=== PATIENT | male | born 1970 | race Native Hawaiian/Other Pacific Islander ===

== ENCOUNTER 2021-06-20 13:44 | Inpatient (IN) | payer OTHER ==
[~2021-06-20] VITALS: Ht 172.7 cm; Wt 109.5 kg
[2021-06-20 10:50] VITALS: BP 116/61; TEMP 97.3
[2021-06-20 15:35] LABS: PLATELET COUNT 249 K/uL (142-355)
[2021-06-20 16:06] LABS: POTASSIUM 4.3 mmol/L (3.6-5.2)
[2021-06-20 18:42] VITALS: BP 134/78; TEMP 98.7; Ht 172.7 cm; Wt 109.5 kg
[2021-06-20 20:00] VITALS: BP 133/85; TEMP 98.4
[2021-06-20 23:10] VITALS: BP 124/74; TEMP 97.4
[2021-06-21] VITALS (7 sets, daily range): BP systolic 122–147; BP diastolic 63–80; TEMP 97–99.9
[2021-06-21 04:41] LABS: PLATELET COUNT 215 K/uL (142-355)
[2021-06-21 05:09] LABS: POTASSIUM 4.2 mmol/L (3.6-5.2)
[2021-06-22] VITALS: BP 141/85; TEMP 98.4
[2021-06-22 04:00] VITALS: BP 148/87; TEMP 97.5
[2021-06-22 08:00] VITALS: BP 130/76; TEMP 98.3
[2021-06-22 08:58] LABS: PLATELET COUNT 309 K/uL (142-355)
[2021-06-22 12:00] VITALS: BP 139/73; TEMP 98.1
[2021-06-22 16:00] VITALS: BP 151/81; TEMP 98.8
[2021-06-22 20:00] VITALS: BP 151/77; TEMP 98.5
[2021-06-23] VITALS: BP 137/76; TEMP 98.3
[2021-06-23 04:00] VITALS: BP 147/88; TEMP 98.3
[2021-06-23 08:00] VITALS: BP 135/82; TEMP 97.9
[2021-06-23 12:00] VITALS: BP 130/77; TEMP 98.1
[2021-06-23 15:32] LABS: PLATELET COUNT 387 K/uL (142-355)
[2021-06-23 15:55] LABS: POTASSIUM 3.9 mmol/L (3.6-5.2)
[2021-06-23 16:00] VITALS: BP 137/72; TEMP 98.2
[2021-06-23 20:00] VITALS: BP 151/89; TEMP 98.5
[2021-06-24 00:26] VITALS: BP 143/86; TEMP 98.4
[2021-06-24 04:00] VITALS: BP 135/78; TEMP 98.7
[2021-06-24 06:15] LABS: POTASSIUM 4.9 mmol/L (3.6-5.2)
[2021-06-24 06:21] LABS: PLATELET COUNT 371 K/uL (142-355)
[2021-06-24 08:00] VITALS: BP 145/91; TEMP 97.9
[2021-06-24 12:00] VITALS: BP 129/79; TEMP 97.9
[2021-06-24 16:00] VITALS: BP 125/75; TEMP 97.8
[2021-06-24 20:00] VITALS: BP 146/81; TEMP 97.8
[2021-06-25 00:21] VITALS: BP 145/81; TEMP 97.7
[2021-06-25 04:00] VITALS: BP 140/84; TEMP 97.8
[2021-06-25 06:11] LABS: PLATELET COUNT 542 K/uL (142-355)
[2021-06-25 06:38] LABS: POTASSIUM 4.3 mmol/L (3.6-5.2)
[2021-06-25 08:00] VITALS: BP 149/87; TEMP 98
[2021-06-25 12:00] VITALS: BP 128/86; TEMP 97.8
== END 2021-06-25 12:45 | disposition home or self-care (01) | DRG 177 ==
LOC: MED/SURG 13:44
PROVIDERS: ADMIT Family Medicine; ATTEND Family Medicine
PROC: 30233K1 Transfusion of Nonautologous Frozen Plasma into Peripheral Vein, Percutaneous Approach (ICD-10-PCS; principal; 2021-06-20)
DX: U07.1 COVID-19 (principal); J12.82 Pneumonia due to coronavirus disease 2019; M62.81 Muscle weakness (generalized)
CPT/HCPCS: 36415; 36600; 80053; 80074; 82728; 82805; 83735; 84100; 85027; 85379; 86140; 86900; 86901; 87040; 93005; 94667; 94668; 94760; J0456; J0696; J1650; J1885; J2405; P9017

== ENCOUNTER → 2021-07-01 | Outpatient (CLI) | payer OTHER | LOC: RAD 15:17 | PROVIDERS: ATTEND Nurse Practitioner Family | DX: U07.1 COVID-19 (principal) ==